=== PATIENT | female | born 1985 | race Caucasian/White ===

== ENCOUNTER 2020-03-08 14:51 | Emergency (ER) | payer OTHER ==
[~2020-03-08] VITALS: Ht 172.7 cm; Wt 72.6 kg
[~2020-03-08 14:51] MED LIST: CLONAZEPAM0.125 MG; MOBIC7.5 M1 PO; NORCO 5-325 TA1 EACH PO; PHENERGAN 25 MG25 M1 PO; TRAMADOL 50 MG50 MG PO
[2020-03-08 15:05] LABS: URINE BILIRUBIN NEGATIVE (Negative); URINE BLOOD TRACE (Negative); URINE CLARITY CLEAR; URINE COLOR YELLOW; URINE GLUCOSE-RANDOM NEGATIVE (Negative); URINE KETONES TRACE (Negative); URINE LEUKOCYTES-REFLEX NEGATIVE (Negative); URINE NITRITE-REFLEX NEGATIVE (Negative); URINE PROTEIN NEGATIVE (Negative); URINE SPECIFIC GRAVITY <= 1.005 (1.005-1.030); URINE UROBILINOGEN 0.2 E.U./dl (0.2-1.0)
[2020-03-08 15:16] LABS: ABSOLUTE BASOPHILS 0.1 thou/uL (0.0-0.2); ABSOLUTE EOSINOPHILS 0.1 thou/uL (0.0-0.7); ABSOLUTE LYMPHOCYTES 2.6 thou/uL (0.8-5.3); ABSOLUTE NEUTROPHILS 5.9 thou/uL (1.6-8.1); HEMATOCRIT 41.7 % (37.0-47.0); HEMOGLOBIN 14.2 gm/dL (12.0-15.0); MCH 31.9 pg (26.0-34.0); MCHC 34.2 g/dL (28.0-37.0); MCV 93.3 fL (80.0-100.0); MONOCYTES 9.9 %; NUCLEATED RBCS 0 /100WBC; PLATELET COUNT* 272 thou/uL (150-400); POLYS 61.1 %; RBC 4.47 mil/uL (4.20-5.00); RDW-CV 12.6 % (10.5-14.5); WBC 9.7 thou/uL (4.0-11.0)
[2020-03-08 15:27] LABS: CALCIUM 8.9 mg/dL (8.5-10.1); CREATININE 0.6 mg/dL (0.6-1.3); POTASSIUM 3.7 mmol/L (3.5-5.1)
[2020-03-08 15:37] LABS: ALBUMIN 4.1 g/dL (3.4-5.0); TOTAL BILIRUBIN 0.3 mg/dL (<0.1-1.0); TOTAL PROTEIN 8.1 g/dL (6.4-8.2)
[2020-03-08] MEDS ORDERED: FLAGYL500 M1 PO (17:43)
[2020-03-08] MEDS ORDERED: NORCO 5-325 TA1 EAC2 PO (17:43)
[2020-03-08 17:45] VITALS: BP 143/78
== END 2020-03-08 17:45 | disposition home or self-care (01) ==
LOC: M.ERS 14:51
PROVIDERS: Physician Assistant
DX: R10.32 Left lower quadrant pain (principal); R10.12 Left upper quadrant pain; Z87.440 Personal history of urinary (tract) infections